=== PATIENT | male | born 1990 | race African-American/Black ===

== ENCOUNTER 2017-11-21 20:24 | Emergency (ER) | payer SELFPAY ==
[~2017-11-21] VITALS: Ht 182.9 cm; Wt 86.2 kg
--- NOTE | 2017-11-21 20:42 | ED Headache ---
General Chief Complaint: Head/Cervical Problems Stated Complaint: HEADACHE X1 WEEK Source: patient Exam Limitations: no limitations History of Present Illness Time seen by provider: 20:39 Initial Comments To ER accompanied by girlfriend with reports of a headache for one week. The headache is intermittent, goes away when he naps and then recurs throughout the day. Pain seemed initially to be just above and medial to the right eye. Throughout the course of this past week the pain has become more diffuse throughout the forehead. Denies any nasal congestion and reports mild rhinorrhea. He denies fevers chills or neck pain. He denies visual changes photophobia nausea or vomiting. He denies fevers or chills. He states that he never really had headaches until he had a concussion several years ago and this is the same location that he gets headaches and on an infrequent basis. However previous headaches typically resolve without treatment and after a short period of time. He does smoke cigars one cigar per day and he states that the nicotine seems to worsen the headaches. He does also report daily marijuana use but states that this has no impact on his headaches. Currently his pain is a 0 out of 10 but intermittently becomes much worse. Timing/Duration: 1 week Severity/Quality: moderate Location: frontal Associated Symptoms: No confusion, No fatigue, No facial pain, No fever/chills , No flushing, No nausea/vomiting, No nasal congestion, No nasal drainage, No numbness in legs/feet, No seizures, No sinus infection, No stiff neck, No vision changes, No weakness Allergies and Home Medications Allergies Coded Allergies: No Known Drug Allergies (Unverified , 11/21/17) Home Medications No Active Prescriptions or Reported Meds Constitutional: see HPI, No chills, No fever Eyes: No Symptoms Reported, Denies Blurred Vision, Denies Drainage, Denies Decreased Acuity, Denies Pain Ears, Nose, Mouth, Throat: no symptoms reported Respiratory: no symptoms reported Cardiovascular: no symptoms reported Genitourinary: no symptoms reported Musculoskeletal: no symptoms reported Skin: no symptoms reported Psychiatric/Neurological: No Symptoms Reported Past Ufsffzu-Ttprok-Snaogk Hx Patient Social History Recent Foreign Travel: No Contact w/Someone Who Travel: No Physical Exam Vital Signs Vital Sign - Last 12Hours 11/21/17 20:39 Temp 98.0 Pulse 65 Resp 20 B/P (MAP) 144/89 (107) Pulse Ox 18 O2 Delivery Room Air Capillary Refill : General Appearance: WD/WN, no apparent distress HEENT: PERRL/EOMI, normal ENT inspection Neck: non-tender, full range of motion Respiratory: normal breath sounds, no respiratory distress, no accessory muscle use Gastrointestinal: normal bowel sounds, non tender Extremities: normal range of motion, non-tender Psychiatric: alert, oriented x 3 Crainal Nerves: normal hearing, normal speech, PERRL Skin: normal color, warm/dry Progress/Results/Core Measures Results/Orders My Orders Orders - HARIS JACKSON APRN Ct Head Wo (11/21/17 20:39) Vital Signs/I&O Vital Sign - Last 12Hours 11/21/17 20:39 Temp 98.0 Pulse 65 Resp 20 B/P (MAP) 144/89 (107) Pulse Ox 18 O2 Delivery Room Air Departure Communication (Admissions) Progress Notes NAME: OLIVERIO MANE [employer] REC#: [id number] PT STATUS: REG ER : 08/26/1991 PHYSICIAN: HARIS JACKSON APRN ADMIT DATE: 11/21/17/ER Signed Date of Exam:11/21/17 PELVIS INDICATION: IUD placement. AP pelvis obtained at 8:40 p.m. FINDINGS: There is no overt bony abnormality in the pelvis. Visualized bowel gas pattern appears unremarkable. There is an IUD device in place overlying the mid pelvis. IMPRESSION: IUD device overlying mid pelvis. No acute abnormality is seen. Dictated by: Dictated on workstation # [id number] Dict: 11/21/172026 Trans: 11/21/172032 [id number] Interpreted by: ALIZA ZUÑIGA MD Electronically signed by: ALIZA ZUÑIGA MD 11/21/172032 Impression Impression: Primary Impression: Acute frontal sinusitis Disposition: HOME, SELF-CARE Condition: Stable Departure-Patient Inst. Decision time for Depature: 21:10 Referrals: NO,LOCAL PHYSICIAN (PCP/Family) Primary Care Physician Patient Instructions: Sinusitis, Adult (DC) Add. Discharge Instructions: 1. Tylenol and Motrin for headaches 2. Antibiotics as directed 3. Return to ER for any concerns All discharge instructions reviewed with patient and/or family. Voiced understanding. Scripts Amoxicillin (Amoxicillin) 500 Mg Tablet 500 MG PO TID, #30 TAB Prov: HARIS JACKSON APRN 11/21/17 HARIS JACKSON APRN Nov 21, 2017 20:42
--- NOTE | 2017-11-21 21:06 | Diagnostic Imaging Report ---
INDICATION: Persistent headache x1 week EXAM: Noncontrast brain CT is performed. COMPARISON: No prior studies for comparison. FINDINGS: There were no extra-axial fluid collections. No intracranial hemorrhage. No intracranial mass or mass effect. No midline shift. The ventricles are normal in size and position. There were no focal parenchymal abnormalities in the brain. Calvarial windows are unremarkable. The maxillary sinuses and mastoid air cells are well-aerated. The sphenoid sinuses are well-aerated. There is mucosal thickening in the ethmoid air cells especially on the right, and some partial opacification of the right frontal sinus. IMPRESSION: No acute intracranial abnormality. Partial opacification of the right frontal sinus with mucosal thickening and fluid, with some milder opacification of the right ethmoid air cells. Dictated by: Dictated on workstation # [id number]
[2017-11-21] MEDS ORDERED: AMOX500T2 PO (21:11)
[2017-11-21] MEDS ORDERED: AMOXICILLIN 500 MG (POLYMOX) CAP PO STA (21:12)
[2017-11-21 21:26] VITALS: BP 144/89
== END 2017-11-21 21:25 | disposition home or self-care (01) ==
LOC: ER 20:26
DX: J01.10 Acute frontal sinusitis, unspecified (principal); F12.90 Cannabis use, unspecified, uncomplicated; F17.290 Nicotine dependence, other tobacco product, uncomplicated
CPT/HCPCS: 70450; 99283